=== PATIENT | female | born 1950 | race Two or more races ===

== ENCOUNTER 2018-05-14 09:53 | Observation (INO) | payer MEDICARE ==
[~2018-05-14] VITALS: Ht 157.5 cm; Wt 86.1 kg
[2018-05-14] MEDS ORDERED: VANCOMYCIN PMX 1GM/200ML 200 ML IV ONE (10:30)
[2018-05-14] MEDS ORDERED: PLEASE ENTER HEIGHT AND WEIGHT MC SCH (10:30)
[2018-05-14] MEDS ORDERED: PLEASE ENTER ALLERGIES MC SCH (10:30)
[2018-05-14] MEDS ORDERED: LACTATED RINGERS 1,000 ML IV SCH (10:36)
[2018-05-14] MEDS ORDERED: FENTANYL PF 100 MCG/2ML ONE ×2 (10:44→14:35)
[2018-05-14] MEDS ORDERED: MIDAZOLAM 1 MG/ML, 2ML ONE (10:44)
[2018-05-14] MEDS ORDERED: LOSA50TA14 PO (10:48)
[2018-05-14] MEDS ORDERED: SIMV20TA3 PO (10:48)
[2018-05-14] MEDS ORDERED: ASPI-496 PO (10:48)
[2018-05-14] MEDS ORDERED: METF500T17 PO (10:48)
[2018-05-14] MEDS ORDERED: KETOROLAC 60 MG/2 ML ONE (10:49)
[2018-05-14] MEDS ORDERED: TRANEXAMIC ACID 100 MG/ML, 10ML ONE (10:49)
[2018-05-14] MEDS ORDERED: SODIUM CHLORIDE 0.9% 100 ML ONE (10:49)
[2018-05-14] MEDS ORDERED: EPINEPHRINE 1 MG/ML, 1ML ONE (10:49)
[2018-05-14] MEDS ORDERED: morphine SULFATE/PF 1 MG/ML, 10ML ONE (10:49)
[2018-05-14] MEDS ORDERED: ROPIvacaine/PF 0.2%, 20 ML ONE (10:49)
[2018-05-14] MEDS ORDERED: BACITRACIN 50,000 UNIT ONE (10:50)
[2018-05-14] MEDS ORDERED: ACETAMINOPHEN 500 MG TABLET PO ONE (11:00)
[2018-05-14] MEDS ORDERED: ONDANSETRON ODT 8 MG PO ONE (11:00)
[2018-05-14] MEDS ORDERED: GABAPENTIN 300 MG CAPSULE PO ONE (11:00)
[2018-05-14 11:02] VITALS: BP 130/85
[2018-05-14 11:26] LABS: CULTURE INDICATED? NO; MICROSCOPIC NOT IND
[2018-05-14 11:28] LABS: BASOPHILS # (AUTO) 0.04 x10^3/uL (0-0.1); BASOPHILS % (AUTO) 1 % (0-1); EOSINOPHILS # (AUTO) 0.17 x10^3/uL (0-0.4); EOSINOPHILS % (AUTO) 2 % (1-7); LYMPHOCYTES # (AUTO) 1.04 x10^3/uL (1-3.4); LYMPHOCYTES % (AUTO) 15 % (22-44); MD NO; MEAN CORPUSCULAR HGB CONC 33.7 g/dL (32.4-35.8); MEAN CORPUSCULAR VOLUME 89.2 fL (80-100); MEAN PLATELET VOLUME 9.7 fL (7.4-10.4); MONOCYTES # (AUTO) 0.37 x10^3/uL (0.2-0.8); MONOCYTES % (AUTO) 5 % (2-9); NEUTROPHILS # (AUTO) 5.43 x10^3/uL (1.8-6.8); NEUTROPHILS % (AUTO) 77 % (42-75); PLATELET COUNT 255 x10^3/uL (130-400); RED BLOOD COUNT 4.87 x10^6/uL (3.82-5.3); RED CELL DISTRIBUTION WIDTH 14.2 % (9.6-15.2)
[2018-05-14] MEDS ORDERED: LORazepam 2 MG/ML, 1ML IVPush PRN ×2 (11:30→12:30)
[2018-05-14] MEDS ORDERED: MEPERIDINE/PF 25MG/0.5ML IVPush PRN (11:30)
[2018-05-14] MEDS ORDERED: LABETALOL 5MG/ML, 20ML IV PRN (11:30)
[2018-05-14] MEDS ORDERED: hydrALAzine 20 MG/ML, 1ML IV PRN (11:30)
[2018-05-14] MEDS ORDERED: OXYcodone 5 MG/5 ML ORAL.SOL UDC PO PRN (11:30)
[2018-05-14] MEDS ORDERED: METOCLOPRAMIDE 5 MG/ML, 2ML IV PRN (11:30)
[2018-05-14] MEDS ORDERED: DEXAMETHASONE 4 MG/ML, 1ML ONE (12:16)
[2018-05-14] MEDS ORDERED: PROPOFOL 10 MG/ML, 20ML ONE (12:16)
[2018-05-14] MEDS ORDERED: LIDOCAINE 2% 100MG/5ML SYRINGE ONE (12:16)
[2018-05-14] MEDS ORDERED: GLYCOPYRROLATE 0.2MG/1ML, 5ML ONE (12:16)
[2018-05-14] MEDS ORDERED: NEOSTIGMINE 1 MG/ML, 10ML ONE (12:16)
[2018-05-14] MEDS ORDERED: ROCURONIUM 10MG/ML,5ML ONE (12:16)
[2018-05-14] MEDS ORDERED: DIPHENHYDRAMINE 50 MG CAPSULE PO PRN (12:30)
[2018-05-14] MEDS ORDERED: TRANEXAMIC ACID 1,000 MG in SODIUM CHLORIDE 0.9% 100 ML IV ONE (12:30)
[2018-05-14] MEDS ORDERED: ONDANSETRON 2MG/ML, 2ML IVPush PRN (12:30)
[2018-05-14] MEDS ORDERED: ZOLPIDEM 5MG TABLET PO PRN (12:30)
[2018-05-14] MEDS ORDERED: morphine SULFATE 10 MG/ML, 1ML IVPush PRN (12:30)
[2018-05-14] MEDS ORDERED: ACETAMINOPHEN 325 MG TABLET PO PRN (12:30)
[2018-05-14] MEDS ORDERED: HYDROmorphone 2 MG/ML, 1ML ONE (14:35)
[2018-05-14] MEDS ORDERED: OXYcodone 5 MG/5 ML ORAL.SOL UDC ONE (14:35)
[2018-05-14] MEDS: FENTANYL PF 100 MCG/2ML IV PRN ×2 (14:39→14:50)
[2018-05-14] MEDS: HYDROmorphone 2 MG/ML, 1ML IVPush PRN ×5 (14:45→15:25)
[2018-05-14] MEDS: D5%-0.45% NACL 1,000 ML IV SCH ×3 (17:20→22:20)
[2018-05-14] MEDS: CEFAZOLIN PMX 1GM/50ML 50 ML IVPB SCH (17:43)
[2018-05-14] MEDS: metFORMIN 500 MG TABLET PO SCH (17:44)
[2018-05-14 18:52] VITALS: BP 119/67
[2018-05-14] MEDS: OXYcodone/APAP 7.5/325MG TABLET PO PRN (19:39)
[2018-05-14] MEDS ORDERED: SIMVASTATIN 20 MG TABLET PO SCH (21:00)
[2018-05-14] MEDS: LOSARTAN 50MG TABLET PO SCH (21:39)
[2018-05-15] MEDS: OXYcodone/APAP 7.5/325MG TABLET PO PRN ×4 (00:23→13:12)
[2018-05-15 00:29] VITALS: BP 100/66
[2018-05-15] MEDS: D5%-0.45% NACL 1,000 ML IV SCH (01:03)
[2018-05-15] MEDS: CEFAZOLIN PMX 1GM/50ML 50 ML IVPB SCH ×2 (02:29→11:00)
[2018-05-15 04:00] VITALS: BP 99/62
[2018-05-15 06:01] LABS: CREATININE 0.85 mg/dL (0.55-1.02)
[2018-05-15] MEDS ORDERED: ASPIRIN 325 MG TABLET EC PO SCH ×2 (08:00→17:00)
[2018-05-15] MEDS: metFORMIN 500 MG TABLET PO SCH (08:34)
[2018-05-15 08:37] VITALS: BP 92/61
[2018-05-15] MEDS: LOSARTAN 50MG TABLET PO SCH (08:37)
[2018-05-15] MEDS ORDERED: VANCOMYCIN PMX 1GM/200ML 200 ML IVPB ONE (11:00)
[2018-05-15 13:00] VITALS: BP 110/56
[2018-05-15] MEDS ORDERED: MUPI22OI2 NS (15:15)
[2018-05-15 15:45] VITALS: BP 132/72
[2018-05-15] MEDS ORDERED: DOCUSATE 100 MG CAPSULE PO SCH (21:00)
== END 2018-05-15 15:50 | disposition home or self-care (01) ==
LOC: OUT 09:53 → ORIP 12:20 → 4NOR 15:47
PROVIDERS: ADMIT Orthopaedic Surgery; ATTEND Orthopaedic Surgery
DX: M17.0 Bilateral primary osteoarthritis of knee (principal); Z96.652 Presence of left artificial knee joint; Z88.0 Allergy status to penicillin; Z88.8 Allergy status to other drugs, medicaments and biological substances; E11.9 Type 2 diabetes mellitus without complications
CPT/HCPCS: 27447; 36415; 73560; 81003; 82565; 82962; 85018; 85025; 87081; 87147; 87806; 93005; 96365; 96366; 96367; 97110; 97116; 97150; 97161; 97165; 97530; C1713; C1776; G0378; J0171; J0690; J1100; J1170; J1885; J2250; J2274; J2704; J2710; J2795; J3010; J3370; J3490; G0475